=== PATIENT | female | born 2000 | race Caucasian/White ===

== ENCOUNTER 2023-04-13 15:18 | Outpatient (RCR) | payer OTHER, MEDICAID, SELFPAY ==
--- NOTE | ~2023-04-13 | US_ITS ---
EXAMINATION: US OB BPP wo non-stress DATE: 04/13/2023 17:03 INDICATION: Nonreactive nonstress test during third trimester TECHNIQUE: Real-time pelvic ultrasound was performed. The interpreting radiologist was not present fo r the study. COMPARISON: None. FINDINGS: There is a single living fetus in vertex presentation. The placenta is anterior. heart rate is 162 beats per minute (bpm). Biophysical profile performed by the technologist: breathing (30 sec sustained breathing in 30 minutes): 2 out of 2 movement (3 gross body movements in 30 minutes): 2 out of 2 tone (one episode of byvpnpu-pqjonyogl-gcokosr limb movement): 2 out of 2 Amniotic fluid pocket (2 cm): 2 out of 2 Total score: 8 out of 8 IMPRESSION: 1. Single living fetus in vertex presentation. 2. Biophysical profile 8 out of 8. Reviewed, dictated and finalized at location L. LEADER
[2023-04-13 17:30] VITALS: BP 135/85; PULSE 98
== END 2023-07-12 23:59 | disposition home or self-care (01) ==
LOC: ANHOBOP 15:18
PROVIDERS: Visit Provider Obstetrics & Gynecology
DX: O36.8330 Maternal care for abnormalities of the fetal heart rate or rhythm, third trimester, not applicable or unspecified (principal); Z3A.38 38 weeks gestation of pregnancy
CPT/HCPCS: 59025; 76819

== ENCOUNTER 2023-04-20 15:34 | Inpatient (IN) | payer OTHER, MEDICAID, SELFPAY ==
[2023-04-20] VITALS (22 sets, daily range): BP systolic 116–155; BP diastolic 53–104; PULSE 86–114; TEMP 36.4; BMI 42.5
--- NOTE | 2023-04-20 16:15 | LDADM ---
This patient, Sofi Hicks, was admitted to Labor/Delivery/Recovery 103 on 04/20/23 at 15:34. Plans for labor, pain management and were discussed with patient. Patient/family oriented to hospital policies and general routines including ID bracelet, bed and alarms, visiting hours, pain management, procedures, bathroom and other care routines, personal items, smoking policy, room service/diet and guest tray routines, infant security routines, and visiting hours. Patient/Family are encouraged to report perceived risks to care and to ask questions if they do not understand what they are told or what they should do. See OBIX for further documentation.
[2023-04-20 16:30] LABS: Basophils Percent Auto 0.2 % (0.2-1.2); Eosinophils Absolute Auto 0.2 K/mm3 (0-0.3); Eosinophils Percent Auto 1.2 % (0-4.4); Hematocrit 35.8 % (37.0-47.0); Hemoglobin 11.3 g/dL (12.0-15.0); Immature Granulocyte Percent A 0.8 % (0-0.5); Lymphocytes Absolute Auto 2.33 K/mm3 (0.9-3.2); Lymphocytes Percent Auto 18.3 % (18.3-44.2); Mean Corpuscular HGB Conc 31.6 g/dl (32-36); Mean Corpuscular Hemoglobin 28.3 pg (26-34); Mean Corpuscular Volume 89.5 fl (80-100); Mean Platelet Volume 10.3 fl (7.4-10.4); Monocytes Absolute Auto 0.8 K/mm3 (0.1-0.6); Monocytes Percent Auto 6.5 % (2.6-8.5); Neutrophils Absolute Auto 9.3 K/mm3 (1.3-6.7); Platelet Count Result 242 k/mm3 (150-375); Red Cell Distribution Width 13.5 % (11.5-14.5); White Blood Count 12.7 K/mm3 (4.5-10.0)
[2023-04-20] MEDS: miSOPROStol 25 MCG TABLET VAGINAL (16:33)
[2023-04-20] MEDS: AMPICILLIN 2 GM/NS 100 ML 2 GM/100 ML BAG IVPB (16:34)
[2023-04-20] MEDS: LACTATED RINGERS 1,000 ML 125 ML IV CONT (16:34)
[2023-04-20 17:42] LABS: Amphetamine Screen Urine Negative (Negative); Barbiturate Screen Urine Negative (Negative); Benzodiazepines Screen Urine Negative (Negative); Cannabinoid Screen Urine Positive (Negative); Cocaine Screen Urine Negative (Negative); Methadone Screen Urine Negative (Negative); Opiate Screen Urine Negative (Negative); Phencyclidine Screen Urine Negative (Negative)
--- NOTE | 2023-04-20 19:10 | WPDANESEPP ---
Anes - Eval Pre Procedure Procedure: labor epidural Date/Time: 04/20/23 19:10 Surgeon: lucy Preop Diagnosis: pain during labor Pre Op Diagnosis: Induction of Labor Patient Data Age: 23 Gender: F Height: 1.7 m Weight: 123 kg Last Vital Signs Pulse 110 H 04/20/23 19:01 BP 116/95 H 04/20/23 19:01 O2 Del Method Room Air 04/20/23 16:14 Allergies Allergy/AdvReac Type Severity Reaction Status Date / Time No Known Allergies Allergy Verified 04/20/23 16:12 Home Medications Medication Instructions Recorded Confirmed Type prenat.vits,luz elena,klr-[id number] 1 tablet PO DAILY 04/08/23 04/20/23 History Laboratory Tests 04/20/23 04/20/23 16:02 17:15 WBC 12.7 H K/mm3 (4.5-10.0) RBC 4.00 L M/mm3 (4.2-5.4) Hgb 11.3 L g/dL (12.0-15.0) Hct 35.8 L % (37.0-47.0) MCV 89.5 fl (80-100) MCH 28.3 pg (26-34) MCHC 31.6 L g/dl (32-36) RDW 13.5 % (11.5-14.5) Plt Count 242 k/mm3 (150-375) MPV 10.3 fl (7.4-10.4) Immature Gran % (Auto) 0.8 H % (0-0.5) Neut % (Auto) 73.0 % (45.5-73.1) Lymph % (Auto) 18.3 % (18.3-44.2) Whitley % (Auto) 6.5 % (2.6-8.5) Eos % (Auto) 1.2 % (0-4.4) Baso % (Auto) 0.2 % (0.2-1.2) Lymph # (Auto) 2.33 K/mm3 (0.9-3.2) Whitley # (Auto) 0.8 H K/mm3 (0.1-0.6) Eos # (Auto) 0.2 K/mm3 (0-0.3) Baso # (Auto) 0.0 K/mm3 (0.0-0.1) Abs Immat Gran (auto) 0.10 H K/mm3 (0.00-0.031) Absolute Neuts (auto) 9.3 H K/mm3 (1.3-6.7) Absolute Nucleated RBC 0.0 K/mm3 (0.0-0.012) Nucleated RBC % 0.0 % (0.0-0.2) Urine Opiates Screen Negative (Negative) Urine Methadone Screen Negative (Negative) Ur Barbiturates Screen Negative (Negative) Ur Phencyclidine Scrn Negative (Negative) Ur Amphetamine Screen Negative (Negative) U Benzodiazepines Scrn Negative (Negative) Urine Cocaine Screen Negative (Negative) U Cannabinoids Screen Positive A (Negative) RPR Pending Blood Type O Positive Antibody Screen Negative Patient hx anesthesia problems: none Family hx anesthesia problems: none Results Review: All pre-operative results and documents have been reviewed as part of the pre-operative evaluation. [facility] Past Medical History Medical History (Updated 04/20/23 @ 19:11 by Milla Cardenas CRNA) IUP (intrauterine ), incidental Morbid obesity with BMI of 40.0-44.9, adult Family History Family History (Updated 04/08/23 @ 15:29 by Lorena Gtz RN) Sibling Cholestasis Social History Social History Smoking status: Current every day smoker Second hand tobacco smoke exposure: Yes Additional smoking assessment comments: marijuana daily Alcohol intake: never Substance use: current Last use: occasional Do You Feel Safe in your Home?: Yes Lack of Transportation: No Lack of Food: Never True Current Housing: I Have Housing Concerned About Future Housing: No Difficulty Paying Gas/Electric Bills: No Difficulty Paying for Meds: No Currently Unemployed: No Education: High School Diploma/GED Difficulty w/ Childcare or Family Care: No Spiritual care concerns: No Exam Day of Procedure 04/20/23 19:10
[2023-04-20] MEDS: AMPICILLIN 1 GM/NS 50 ML 1 GM/50 ML BAG IVPB (20:31)
[2023-04-20] MEDS: miSOPROStol 25 MCG TABLET 50 MCG PO (20:47)
[2023-04-21] VITALS (132 sets, daily range): BP systolic 106–168; BP diastolic 52–107; PULSE 31–106; RESP 18–20; TEMP 36.1–36.9; O2SAT 90–100
[2023-04-21] MEDS: AMPICILLIN 1 GM/NS 50 ML 1 GM/50 ML BAG IVPB ×3 (00:50→08:40)
[2023-04-21] MEDS: OXYTOCIN 30 UNITS/NS 500 ML 30 UNITS/500 ML BAG IV CONT (01:00)
[2023-04-21] MEDS: ONDANSETRON INJ 4 MG/2 ML VIAL IV PUSH (07:01)
[2023-04-21] MEDS: SODIUM CHLORIDE 0.9% IV 300 ML 600 ML I-UTERINE (08:36)
[2023-04-21] MEDS: fentaNYL CITRATE INJ (*CRX) 100 MCG/2 ML VIAL IV PUSH (08:38)
--- NOTE | 2023-04-21 08:42 | PM.IMHP ---
H&P: HPI History of Present Illness Date/Time: 04/21/23 08:42 Chief Complaint: oligohydramnios Narrative: Patient presents for medical induction of labor indicated for oligohydramnios and 6/10 BPP. In the office on 04/20, PAYTON was 3.6cm with no 2x2cm pocket. She denies LOF, VB, ctx. Good movement. Review of Systems Review of Systems: All systems reviewed & are unremarkable except as noted in HPI and below PMFSH Past Medical History Medical History IUP (intrauterine ), incidental Morbid obesity with BMI of 40.0-44.9, adult Family History Family History Sibling Cholestasis Social History Social History Smoking status: Current every day smoker Second hand tobacco smoke exposure: Yes Additional smoking assessment comments: marijuana daily Alcohol intake: never Substance use: current Last use: occasional Do You Feel Safe in your Home?: Yes Lack of Transportation: No Lack of Food: Never True Current Housing: I Have Housing Concerned About Future Housing: No Difficulty Paying Gas/Electric Bills: No Difficulty Paying for Meds: No Currently Unemployed: No Education: High School Diploma/GED Difficulty w/ Childcare or Family Care: No Spiritual care concerns: No Meds Home Medications and Allergies Home Medications Medication Instructions Recorded Confirmed Type prenat.vits,luz elena,jlk-uwpg-wzeri 1 tablet PO DAILY 04/08/23 04/20/23 History Allergies Allergy/AdvReac Type Severity Reaction Status Date / Time No Known Allergies Allergy Verified 04/20/23 16:12 Vital Signs Vital Signs - 24 hr 04/20/23 15:59 04/20/23 16:01 04/20/23 16:32 Temperature Pulse Rate 108 H 114 H 100 Blood Pressure 150/88 H 155/93 H 126/64 Pulse Oximetry Oxygen Delivery 04/20/23 16:45 04/20/23 17:01 04/20/23 17:30 Temperature Pulse Rate 98 96 93 Blood Pressure 120/59 L 117/57 L 131/85 Pulse Oximetry Oxygen Delivery 04/20/23 17:45 04/20/23 18:01 04/20/23 18:16 Temperature Pulse Rate 98 108 H 99 Blood Pressure 141/85 H 146/76 H 141/83 H Pulse Oximetry Oxygen Delivery 04/20/23 18:31 04/20/23 18:46 04/20/23 19:01 Temperature Pulse Rate 99 105 H 110 H Blood Pressure 149/88 H 142/77 H 116/95 H Pulse Oximetry Oxygen Delivery 04/20/23 19:15 04/20/23 19:30 04/20/23 20:52 Temperature 97.6 F Pulse Rate 104 H 99 97 Blood Pressure 121/76 127/79 144/86 H Pulse Oximetry Oxygen Delivery 04/20/23 21:01 04/20/23 21:04 04/20/23 21:31 Temperature Pulse Rate 100 96 88 Blood Pressure 130/104 H 147/92 H 120/53 L Pulse Oximetry Oxygen Delivery 04/20/23 22:01 04/20/23 22:30 04/20/23 23:00 Temperature Pulse Rate 90 95 89 Blood Pressure 123/63 124/63 120/65 Pulse Oximetry Oxygen Delivery 04/20/23 23:30 04/21/23 00:01 04/21/23 00:00 Temperature 98.1 F Pulse Rate 86 85 Blood Pressure 129/77 127/74 Pulse Oximetry Oxygen Delivery 04/21/23 00:31 04/21/23 01:01 04/21/23 01:06 Temperature Pulse Rate 87 84 Blood Pressure 110/61 130/87 Pulse Oximetry 97 97 Oxygen Delivery 04/21/23 01:11 04/21/23 01:16 04/21/23 01:21 Temperature Pulse Rate Blood Pressure Pulse Oximetry 96 97 96 Oxygen Delivery 04/21/23 01:26 04/21/23 01:31 04/21/23 01:36 Temperature Pulse Rate 90 Blood Pressure 136/88 Pulse Oximetry 98 97 96 Oxygen Delivery 04/21/23 01:41 04/21/23 01:46 04/21/23 01:51 Temperature Pulse Rate Blood Pressure Pulse Oximetry 96 97 97 Oxygen Delivery 04/21/23 01:56 04/21/23 02:01 04/21/23 02:05 Temperature Pulse Rate 91 Blood Pressure 144/86 H Pulse Oximetry 97 98 100 Oxygen Delivery 04/21/23 02:10 04/21/23 02:15 04/21/23 02:20 Temperature Pu
[2023-04-21] MEDS: LACTATED RINGERS 1,000 ML 125 ML IV CONT (08:44)
--- NOTE | 2023-04-21 10:16 | PM.OBPRVD ---
OB - Vaginal Delivery Note Procedure Delivery date: 04/21/23 Events: Oligohydramnios Induction method: Per Misoprostol Protocol Delivery augmentation: Rupture of Membranes and Pitocin Delivery monitor: External FHT, External Uterine and Internal Uterine Route of delivery: Episiotomy description: None Laceration Description: Perineal - 1st Degree Delivery repair: vicryl Specimen: Yes (placenta for pathology) Quantitative Blood Loss (ml): 100 Anesthesia type: Local Disposition: Floor Complications: No immediate complications [place] Baby Date of : 04/21/23 Time of : 09:55 Weeks of gestation at delivery: 39 gender: Female presentation: vertex position: Left Occiput Anterior Placenta delivery description: Expressed Cord Vessel Description: 3 Vessels Narrative: mother and baby stable
[2023-04-21] MEDS: OXYTOCIN 30 UNITS/NS 500 ML 30 UNITS/500 ML BAG 125 UNITS IV CONT (10:27)
[2023-04-21] MEDS: WITCH HAZEL 40 PADS 1 PAD TOPICAL (12:36)
[2023-04-21] MEDS: BENZOCAINE 20% AER SPR (*SP) 56 GM CAN 1 SPRAY TOPICAL (12:36)
--- NOTE | 2023-04-21 13:10 | OBPPTRN ---
Patient transferred to post room #285 via wheelchair. Support person present. Oriented to unit, room, information board, rooming in, admission packet and security measures. Patient verbalizes understanding.
[2023-04-21] MEDS: ACETAMINOPHEN 325 MG TABLET 650 MG PO (13:27)
[2023-04-21 14:02] LABS: Rapid Plasma Reagin Non-Reactive (NonReactive)
[2023-04-21] MEDS: IBUPROFEN 600 MG TABLET PO (22:00)
[2023-04-22 05:46] VITALS: BP 127/81; PULSE 91; RESP 18; TEMP 36.7; O2SAT 100
[2023-04-22 07:09] LABS: Hematocrit 34.3 % (37.0-47.0); Hemoglobin 10.9 g/dL (12.0-15.0)
[2023-04-22 07:40] VITALS: BP 125/84; PULSE 90; RESP 16; TEMP 36.4; O2SAT 99
[2023-04-22] MEDS: DOCUSATE SODIUM 100 MG CAPSULE PO ×2 (07:43→19:40)
[2023-04-22] MEDS: IBUPROFEN 600 MG TABLET PO ×2 (07:43→19:39)
[2023-04-22] MEDS: MULTIVIT/MIN/PREN/FOL AC/IRON TABLET 1 TAB PO (07:43)
--- NOTE | 2023-04-22 08:17 | PM.OBPNVD ---
OB - PN: Subj Subjective Date/time seen: 04/22/23 08:17 Patient comments: no complaints, pain well controlled, incisional pain, tolerating diet and flatus present OB - PN: Obj Data Labs 04/22/23 07:01 Labs: Laboratory Results - last 24 hr 04/20/23 04/22/23 16:02 07:01 Hgb 10.9 L Hct 34.3 L RPR Non-reactive OB - PN A/P Plan day: 1 Plan: routine care Comments: No problems, routine care Time Spent With Patient Time: Total time spent is greater than 50% in coordination of care (as documented) at patient's floor/unit and/or counseling patient: Exam Const: General: comfortable, no acute distress and alert Resp: Effort & Inspection: normal respiratory effort Auscultation: no crackles, no rales and no rhonchi Cardio: Rate: regular rate Heart sounds: no click, no murmurs and no rubs GI: Inspection: non-distended GI Palp: No Tenderness to palpation present (GI) Auscultation: normal bowel sounds Other: Incision - CDI Extrem: General: normal to inspection, no pedal edema and no calf tenderness
--- NOTE | 2023-04-22 15:34 | PCCCNOTE ---
Received screening that patient was smoking marijuana during . Met with pt. and family in room. Pt.'s sig other Adele at bedside. Pt. lives at home with Adele. This is their first child together. Patient has all necessary supplies for patient including a car seat, bassinet, clothing, diapers and bottles. Patient plans to formula feed at discharge. She reports the rubber tubing backer did provide information regarding breast feeding and marijuana use. She reports she does not plan to eat edibles any longer. Baby was not tested for substances upon . Patient was provided resources. Reports she plans to use [facility] services at discharge. Information provided about this as well. Pt. denies any other needs. Discharge home tomorrow per physician.
[2023-04-22 19:00] VITALS: BP 135/70; PULSE 89; RESP 18; TEMP 36.9; O2SAT 100
[2023-04-22] MEDS: WITCH HAZEL 40 PADS 1 PAD TOPICAL (19:39)
[2023-04-23 07:55] VITALS: BP 125/74; PULSE 90; RESP 16; TEMP 36.9; O2SAT 98
[2023-04-23 08:00] VITALS: PULSE 90; RESP 16; O2SAT 98
[2023-04-23] MEDS: MULTIVIT/MIN/PREN/FOL AC/IRON TABLET 1 TAB PO (08:28)
[2023-04-23] MEDS: DOCUSATE SODIUM 100 MG CAPSULE PO (08:28)
[2023-04-23] MEDS: IBUPROFEN 600 MG TABLET PO (08:35)
--- NOTE | 2023-04-23 09:10 | PC.NURSE ---
Patient viewed the discharge video Mother & Baby Care, The First Two Weeks . Patient was given the opportunity and encouraged to ask questions. Patient verbalized understanding of information shared and has been given the mother/baby guide for home reference.
--- NOTE | 2023-04-23 10:39 | PM.OBPNVD ---
OB - PN: Subj Subjective Date/time seen: 04/23/23 10:39 Interval history: PPD#2 Doing well, pain well controlled Breast/formula feeding Bleeding minimal OB - PN: Obj Data Labs 04/22/23 07:01 OB - PN A/P Plan day: 2 Plan: discharge home Comments: follow up 4 weeks Time Spent With Patient Time: Total time spent is greater than 50% in coordination of care (as documented) at patient's floor/unit and/or counseling patient: Review of Systems Review of Systems: All systems reviewed & are unremarkable except as noted in HPI and below Exam Const: General: comfortable, no acute distress and alert Resp: Effort & Inspection: normal respiratory effort
--- NOTE | 2023-04-23 10:41 | P.DS_ITS ---
DS: Admitting Diagnosis Discharge Date 04/23/23 Admitting Diagnosis induction of labor, oligohydramnios DS: Discharge Diagnosis Discharge Diagnosis (1) Oligohydramnios: Qualifiers: Fetus number: single or unspecified fetus Trimester: third trimester Qualified Code(s): O41.03X0 - Oligohydramnios, third trimester, not applicable or unspecified Code(s): O41.00X0 - Oligohydramnios, unspecified trimester, not applicable or unspecified Status: Acute (2) (spontaneous vaginal delivery): Code(s): O80 - Encounter for full-term uncomplicated delivery Status: Acute OB - DS: Summary OB Procedures : None OB Procedures Intrapartum: Spontaneous Vag Delivery OB Procedures: : None Peripartum Data Laceration Description: Perineal - 1st Degree Episiotomy description: None Time Spent with Patient Time attestation: Total time spent providing and/or coordinating discharge services: DS: Data Data Completed and Pending Completed studies during hospitalization: Pending at discharge 04/21/23 11:06 Surgical [PTH] Routine Discharge Plan Discharge Attending physician on discharge: Gualberto Pulliam Discharging Clinician: Gualberto Pulliam Patient Disposition: Home, Self-Care Activity: may shower and pelvic rest Diet: as tolerated Patient Instructions: Antibiotic Form, How to Stop Smoking (DC), Cigarette Smoking and Your Health (GEN) Stand Alone Forms: General Discharge Information Follow-up/Referrals: Gualberto Pulliam MD [Physician] - 4 Weeks Discharge Medications: Continued #2 Tablet 1 tablet PO DAILY Date of admission: 04/20/23 15:34 Primary Care Provider: PHYSICIAN,RETAIL MARKETING MANAGER Admitting Provider: Gualberto Pulliam Attending physician on admission: Gualberto Pulliam Condition: Stable
--- NOTE | 2023-04-23 14:57 | PC.NURSE ---
[id number] Reportedly 04/21 & 04/22 mother wanted to bottle feed her . Audra RN initiated pumping 04/21 1701 to protect mothers milk supply. In the afternoon of 04/22 patient mentioned to the [facility] [employer] Attendant that she wanted to breastfeed. Late in the afternoon the Primary RN assisted mother with . Through the night mother breastfed and bottle fed her infant. Introductions were made, then consulted with patient to assess needs related to . Mother led the conversation with her?plans to feed?her , the?experience so far, pumping a little of colostrum and bottle feeding. Encouraged understanding of the benefits of skin to skin (demonstrating unwrapping infant and placing upright on her chest), stimulating with massage touch, changing positions to encourage wakefulness, how to watch for early feeding cues, responsive feeding, feeding on demand (aiming for 8-12 times in 24 hours, about every 2-3 hours), milk production, building/maintaining a milk supply, duration of feeding, signs of adequate intake/output and how to record on the feeding sheet. Mother works well with her infant with encouragement and education. Reviewed positioning and ear, shoulder, hip alignment, supporting the breast to facilitate a deep latch, asymmetrical latch (off-center), leading with the chin with a big, open, wide gape and body close to mother. latched to the left, then the right breast in football position. Education given to the mother of how to visualize the suckling (with good rocking jaw motion), swallows (dropping of the lower jaw) and how to listen for drinking at the breast (the ka sound). Signs of swallowing were very rare. Infant rarely demonstrated good rocking motion lowering the jaw. LC attempted to latch infant multiple times. Infant was unable to maintain latch. Mother did not complain of pain, however; the nipples had a pinch line across the middle of the nipple on both breast after practicing. It was observed the nice rounded cheek line versus dimpling. Rare swallows were visualized. Reviewed good handwashing when or touching the breast/nipples to prevent infection. Mother voiced understanding of skin to skin, stimulating with massage touch, responsive feedings, hand expressed colostrum (none expressed), talking to to encourage if it has been 2 -2.5 hours since the start of the last , to call if does not latch, or if there is discomfort with . Resources used for education were facilitated with the visual educational handouts, tool, mom and baby guide. Inpatient/outpatient resources provided with feeding sheet, name written on the communication board, and the mom/baby guide. Parents voiced understanding of information, demonstrated learning and will call if there is a request for assistance. Reported to the Primary RN.
--- NOTE | 2023-04-23 15:11 | PC.NURSE ---
1000 - Mother was encouraged to reach out to her [facility] resources for improving her success and milk supply. Reviewed consistency with stimulating breast 8 times in 24 hours 1-2 times at night if infant is not latching or . Encouraged practice to improve the skill set within herself and her . Instructions given on cleaning, care, usage, that there should be no pain, pumping schedule for milk production, collection, and storage of human milk. We reviewed working with the , supporting breast, protecting her nipples with an optimal deep latch, good positioning, and good hand washing. Reinforced understanding of milk production, transition of milk, signs of adequate intake, transition of stool, prevention/relief of engorgement, plugged ducts, mastitis, responsive watching for feeding cues, the different methods of stimulating to breastfeed 1-3 hours after the start of the last feeding, community resources, and when to call a provider using the resource of the mom and baby guide. Mother voiced understanding of the education shared. Reported to the Primary RN.
[2023-04-24 11:15] VITALS: BP 136/84; PULSE 72; RESP 18; TEMP 36.8; O2SAT 100
== END 2023-04-23 12:42 | disposition home or self-care (01) | DRG 806 ==
LOC: ANHLDR 15:45 → ANHOB2 04-21 13:33
PROVIDERS: Admitting Provider Obstetrics & Gynecology; Visit Provider Obstetrics & Gynecology
DX: O41.03X0 Oligohydramnios, third trimester, not applicable or unspecified (principal); O99.324 Drug use complicating childbirth; Z37.0 Single live birth; Z3A.39 39 weeks gestation of pregnancy; F12.90 Cannabis use, unspecified, uncomplicated; O99.824 Streptococcus B carrier state complicating childbirth; O70.0 First degree perineal laceration during delivery; O62.3 Precipitate labor
CPT/HCPCS: 36415; 80307; 85014; 85018; 85025; 86592; 86850; 86900; 86901; 88307; A9270; J0290; J2405; J2590; J3010; J7030; J7120